=== PATIENT | male | born 1955 | race Caucasian/White ===

== ENCOUNTER 2016-10-03 14:04 | Emergency (ER) | payer OTHER ==
[2016-10-03 14:59] VITALS: BP 118/76; PULSE 74; RESP 20; TEMP 98.3; O2SAT 99
[2016-10-03] MEDS ORDERED: TDAP Vaccine 0.5 mL Syr IM ONE (15:23)
[2016-10-03] MEDS ORDERED: Bacitracin 500 Units/gm Oint Foilpak UD TOP ONE (15:23)
--- NOTE | 2016-10-03 16:03 | ED PDOC ---
HPI: Trauma/Fall - HPI Time Seen by Provider: 10/03/16 15:12 Chief Complaint (Nursing): Trauma Chief Complaint (Provider): Trauma History Per: Patient History/Exam Limitations: no limitations Onset/Duration Of Symptoms: Hrs Additional Complaint(s): 60 y/o male with a past medical history of hypercholesterolemia presents to the emergency department with a complaint of a left sided hip pain and left wrist pain after he fell while going down a ladder at home and landing on his hand and hip about 10 am this morning. Associated with mild swelling and a head injury where he sustained a large lump and abrasion on the left side of the forehead (had resolved since). Reports he had pain since he fell and worsens when he puts weight on the left side of the hip or with movement of the wrist. Intake of ibuprofen did not relief any symptoms. Denies loss of consciousness, nausea, vomiting, focal weakness or numbness, and blurry vision. Past Medical History Reviewed: Historical Data, Nursing Documentation, Vital Signs Vital Signs: Last Vital Signs Temp 98.3 F 10/03/16 14:55 Pulse 74 10/03/16 14:55 Resp 20 10/03/16 14:55 BP 118/76 10/03/16 14:55 Pulse Ox 99 10/03/16 14:55 - Medical History PMH: Hypercholesterolemia - Surgical History Surgical History: Appendectomy - Family History Family History: States: Unknown Family Hx - Social History Current smoker - smoking cessation education provided: Yes Ex-Smoker (has not smoked in the last 12 months): No Alcohol: Occasional (almost never) Drugs: Denies - Home Medications Home Medications: Ambulatory Orders Medication Instructions Recorded traMADol [Ultram] 50 mg PO TID PRN #15 tab 10/03/16 - Allergies Allergies/Adverse Reactions: Allergies Allergy/AdvReac Type Severity Reaction Status Date / Time No Known Allergies Allergy Verified 10/03/16 14:54 Review of Systems ROS Statement: Except As Marked, All Systems Reviewed And Found Negative Constitutional: Negative for: Other (Loss of conciousness) Eyes: Negative for: Other (blurry vision) Gastrointestinal: Negative for: Nausea, Vomiting Musculoskeletal: Positive for: Hand Pain (Left wrist pain), Other (Left hip pain and head injury) Neurological: Negative for: Weakness (Focal), Numbness Physical Exam - Reviewed Nursing Documentation Reviewed: Yes Vital Signs Reviewed: Yes - Physical Exam Appears: Positive for: Non-toxic, In Acute Distress (Mild painful distress) Head Exam: Positive for: NORMOCEPHALIC (Pinpoint superficial laceration to the left forehead that is hemostatic and well approximated) Skin: Positive for: Normal Color, Warm, Dry Eye Exam: Positive for: Normal appearance, PERRL Neck: Positive for: Normal, Painless ROM (with no tenderness), Supple Extremity: Positive for: Tenderness (Tenderness to palpation at the base of the first metacarpal and scaphoid of the wrist. no point tenderness to palpation of the left lower extrm. ), Capillary Refill (Strong radial pulse and pedal pulse with <2 second capillary refill of the left extrm, hip, and hand. ), Swelling ( Mild swelling at the site of tenderness), Other (Distal light touch intact in all nerve distributions. 5/5 strength in all movements of the hand. 5/5 strength with PF, DF, KE, and KF. Hip flexion is 4+ out of 5 limited secondary to pain. ). Negative for: Pedal Edema, Deformity (Negative logroll of the lower extrm. ) Neurologic/Psych: Positive for: Alert, Oriented - ECG O2 Sat by Pulse Oximetry: 99 (RA) Pulse Ox Interpretation: Normal Medical Decision Making Medical Decision Making: Time: 15:12 Initial impression: Left hip pain, left wrist pain and minor head injury status post fall. Differential includes fracture, joint sprain, groin strain, and contusion Initial plan: --Bacitracin --TDAP Vaccine --Hand left 3 Views Routine (RAD) --Hip Min 2V w/ pelvis LT (RAD) --Wrist, left 3 Views (RAD) --Revaluation Scribe Attestation: Documented by Yadira Moffett, acting as a scribe for Marlin Kelly MD. Provider Scribe Attestation: All medical record entries made by the Scribe were at my direction and personally dictated by me. I have reviewed the chart and agree that the record accurately reflects my personal performance of the history, physical exam, medical decision making, and the department course for this patient. I have also personally directed, reviewed, and agree with the discharge instructions and disposition. Disposition - Clinical Impression Clinical Impression: Groin strain, Wrist injury Counseled Patient/Family Regarding: Studies Performed, Diagnosis, Need For Followup, Rx Given (No history of narcotic rx on [place] database. DW pt risks of dependence, addiction and overdose.) - Disposition Referrals: Faisal Lewis MD [Medical Doctor] - (FOLLOW UP WITH ORTHOPEDIST IN 2-3 DAYS.) Disposition: Routine/Home Disposition Time: 16:00 Condition: GOOD Additional Instructions: CONTINUE IBUPROFEN FOR THE NEXT 48 HOURS. TAKE TRAMADOL ONLY NEEDED FOR SEVERE PAIN. Prescriptions: traMADol [Ultram] 50 mg PO TID PRN #15 tab PRN Reason: SEVERE PAIN ONLY Instructions: Groin Strain (ED), Wrist Injury (ED), Narcotic Pain Management ( ED)
--- NOTE | 2016-10-03 17:08 | RAD ---
PROCEDURE: Left wrist 10/03/2016 HISTORY: FOOSH from ladder COMPARISON: None. FINDINGS: BONES: No evidence of acute displaced fracture nor dislocation. The osseous structures appear intact. If symptoms persist or occult fracture suspected clinically recommend repeat radiographs in 5-10 days as most fractures should become radiographically evident in this timeframe. JOINTS: Normal. No dislocation. SOFT TISSUES: Normal. OTHER FINDINGS: None. IMPRESSION: No evidence of acute displaced fracture nor dislocation. The osseous structures appear intact. If symptoms persist or occult fracture suspected clinically recommend repeat radiographs in 5-10 days as most fractures should become radiographically evident in this timeframe.
--- NOTE | 2016-10-03 17:15 | RAD ---
PROCEDURE: Pelvis left hip dated 10/03/2016 HISTORY: Fall. Pain groin w weight bearing. COMPARISON: [facility] None. FINDINGS: BONES: No evidence of acute displaced fracture nor dislocation. Both femoral heads are appropriately located within the respective acetabula. . If symptoms persist or occult fracture suspected clinically consider followup imaging. JOINTS: Joint spaces preserved however some minor overgrowth of the superolateral margins both acetabula. SOFT TISSUES: Soft tissues appear grossly unremarkable. OTHER FINDINGS: None. IMPRESSION: No acute displaced fracture nor dislocation. .
== END 2016-10-03 17:10 | disposition home or self-care (01) ==
LOC: H.ER 14:04
DX: S09.90XA Unspecified injury of head, initial encounter (principal); S00.81XA Abrasion of other part of head, initial encounter; S39.011A Strain of muscle, fascia and tendon of abdomen, initial encounter; M25.552 Pain in left hip; S69.92XA Unspecified injury of left wrist, hand and finger(s), initial encounter; W11.XXXA Fall on and from ladder, initial encounter; Y92.008 Other place in unspecified non-institutional (private) residence as the place of occurrence of the external cause; E78.00 Pure hypercholesterolemia, unspecified; Z87.891 Personal history of nicotine dependence